=== PATIENT | female | born 1970 | race Caucasian/White ===

== ENCOUNTER → 2022-08-08 | Outpatient (CLI) | payer MEDICARE ==
--- NOTE | 2022-09-05 09:24 | MM ---
Reason for Exam: Screening (asymptomatic). Patient History: Menarche at age 10. Postmenopausal. Risk Values: Tatiana 5 year model risk: 0.8%. NCI Lifetime model risk: 6.1%. Prior Study Comparison: No prior studies available for comparison. Tissue Density: There are scattered fibroglandular densities. Findings: Analyzed By CAD. There is no suspicious group of microcalcifications or new suspicious mass in either breast. Overall Assessment: Negative, BI-RAD 1 Management: Screening Mammogram of both breasts in [address] [facility] will attempt to contact patient to return for supplemental views and ultrasound if indicated. Patient should continue monthly self-breast exams. A clinical breast exam by your physician is recommended on an annual basis. This exam should not preclude additional follow-up of suspicious palpable abnormalities. Note on Tatiana scores and lifetime risk: 1. A Tatiana score greater than 3% is considered moderate risk. If this is the case, consider specialist referral to assess eligibility for a risk reducing agent. 2. If overall lifetime risk for the development of breast cancer is 20% or higher, the patient may qualify for future screening with alternating mammogram and breast MRI. Electronically signed and approved by: Melvin Zapata DO
== END | disposition home or self-care (01) ==
LOC: RADMAMWWP 15:34
PROVIDERS: ATTEND Family Medicine
DX: Z12.31 Encounter for screening mammogram for malignant neoplasm of breast (principal); Z78.0 Asymptomatic menopausal state
CPT/HCPCS: 77063; 77067